=== PATIENT | female | born 1995 | race Caucasian/White ===

== ENCOUNTER 2019-05-04 22:43 | Inpatient (IN) ==
[2019-05-04] MEDS ORDERED: OXYTOCIN 30 UNITS/500 ML BAG IV PRN (23:29)
[2019-05-04] MEDS: LACTATED RINGER'S 1,000 ML IV PRN (23:35)
[2019-05-04] MEDS ORDERED: fentaNYL citrate 100 MCG/2 ML VIAL ONE (23:58)
[2019-05-04] MEDS ORDERED: BUPIVACAINE 0.25% 30 ML VIAL ONE (23:58)
[2019-05-04] MEDS ORDERED: ePHEDrine sulfate 50 MG/ML AMP ONE (23:58)
[2019-05-04 23:59] LABS: Hematocrit (blood only) 33.1 % (37-47); Mean Corpuscular Volume 76.1 fL (80-100); Mean Platelet Volume 11.2 fL (7.4-10.4); Platelet Count 174 K/uL (130-400); RDW Coefficient of Variation 15.5 % (11.5-14.5); RDW Standard Deviation 43.4 fL (36.4-46.3); Red Blood Count 4.35 M/uL (4.2-5.4); White Blood Count 7.43 K/uL (4.8-10.8)
[2019-05-04] MEDS ORDERED: fentaNYL 2MCG/ML ROPIV 1.25MG/ML 100 ML BAG EPI ONE (23:59)
[2019-05-05 00:04] LABS: Mean Corpuscular Hgb Conc 33.2 g/dL (32-36)
--- NOTE | 2019-05-05 00:34 | History & Physical Report ---
Date of Service May 05, 2019 Assessment & Plan (1) Normal labor: IUP at term in active labor. Requesting epidural analgesia anticipate vaginal Present on Admission?: Yes History of Present Illness Primary Care Provider: NO PCP Patient is a 23yo white female EDC05/08/19 who presents with regular contractions since 2029 tonight. no bloody show or SROM. She is a late transfer from [place] where she received care. has been complicated by diet controlled GDM. GBS (-) Allergies Allergy/AdvReac Type Severity Reaction Status Date / Time No Known Allergies Allergy Verified 05/04/19 22:59 Home Medications Home Medications Medication Instructions Recorded Confirmed Type 1 tab PO DAILY 04/19/19 05/04/19 History vitamin,calcium,tekdhxqh-bmmd-bfpie acid tablet Patient History Medical History Gestational diabetes diet controlled with current Spontaneous vaginal delivery [facility] 09/13/2017 History of anxiety no meds per pt Social History Preferred Language: Welsh Communication Ability: Effective Executive Admin Required: No Beliefs That Will Affect Care: None marital status: Current Living Situation: Spouse Current Living Situation Comment: [employer] Other Information That Helps Us Care for You: No Feels Safe at Home: Yes Safety Concerns: Feels Safe At This Time Smoking Status: Never smoker Hx Alcohol Use: No Hx Substance Use: No Review of Systems All systems reviewed & are unremarkable except as noted in HPI & below Physical Exam Constitutional: WD/WN, vitals as above Respiratory: normal respiratory effort, lungs clear to auscultation Cardiovascular: RRR, no murmur, no edema Extremities: no calf tenderness Gastrointestinal (Abdomen): normal bowel sounds, soft, nontender, no hepatosplenomegaly Psychiatric: A+Ox3, euthymic affect Genitourinary: normal external appearance OB Exam Abdomen: + vertex and + regular contractions (every 2-3 minutes) Manual OB Exam: + cervical dilation 4 cm, + cervical effacement 80% and + station -2 OB Exam Monitor Tracing: + external FHT monitor used, + external uterine monitor used, + category I and + normal FHT variability Results & Data Vital Signs (Past 12 Hours) Vital Signs Temp Pulse Resp BP 05/04/19 23:06 98.2 F 62 18 122/75 08/17/19 23:02 98.2 F 62 18 122/75 Code Status & VTE Plan VTE Prophylaxis Plan VTE Prophylaxis will be ordered: No
[2019-05-05] MEDS: LACTATED RINGER'S 1,000 ML IV PRN (00:57)
--- NOTE | 2019-05-05 01:04 | Anesthesiology Consultation ---
Date of Service May 05, 2019 Assessment & Plan Chart Review Chart Review: Acceptable Risk for Labor Epidural Consults Requested none History Height/Weight Height: 5 ft 3 in Weight: 67.132 kg Allergies Allergy/AdvReac Type Severity Reaction Status Date / Time No Known Allergies Allergy Verified 05/04/19 22:59 Medications Home Medications Medication Instructions Recorded Confirmed Last Taken 1 tab PO DAILY 04/19/19 05/04/19 05/04/19 09:00 vitamin,calcium,lixutzav-lzjt-yvobb acid tablet Active Medications Generic Name Dose Route Start Last Admin Trade Name Freq PRN Reason Stop Dose Admin Lactated Ringer's 1,000 mls @ 125 mls/hr 05/04/19 23:29 05/05/19 00:59 Lr IV 05/06/19 23:28 125 mls/hr .Q8H PRN Infusion L&D Protocol Protocol Past Medical History Medical History Gestational diabetes diet controlled with current Spontaneous vaginal delivery [facility] 09/13/2017 History of anxiety no meds per pt Past Family History Family History Father Hypertension Aunt Ovarian cancer Social History Smoking Status: Never smoker Hx Alcohol Use: No Hx Substance Use: No Physical Exam Vital Signs Last Vital Signs Temp 36.8 C 05/04/19 23:06 Pulse 64 05/05/19 01:01 Resp 18 05/04/19 23:06 BP 122/71 05/05/19 01:01 Pulse Ox 100 05/05/19 01:00 Testing Laboratory Results 05/04/19 23:39
[2019-05-05] MEDS ORDERED: NALOXONE HCL 1 MG in SODIUM CHLORIDE 0.9% 1000ML 1,000 ML IV PRN (01:07)
[2019-05-05] MEDS ORDERED: DiphenhydrAMINE HCL 50 MG/ML VIAL IV PRN (01:07)
[2019-05-05] MEDS ORDERED: ePHEDrine sulfate 50 MG/ML AMP IV PRN (01:07)
[2019-05-05] MEDS ORDERED: NALOXONE HCL 0.4 MG/1 ML VIAL/CARP IV PRN (01:07)
[2019-05-05] MEDS ORDERED: fentaNYL 2MCG/ML ROPIV 1.25MG/ML 100 ML BAG EPI PRN (01:07)
[2019-05-05] MEDS ORDERED: NALBUPHINE HCL INJ 10 MG/ML AMP IV PRN (01:07)
[2019-05-05] MEDS ORDERED: CALCIUM CARBONATE 500 MG CHEWABLE TAB PO PRN (03:49)
[2019-05-05] MEDS ORDERED: CALCIUM CARBONATE 500 MG CHEWABLE TAB ONE (04:12)
[2019-05-05] MEDS ORDERED: HYDROCORTISONE ACETATE 25 MG SUPP PR PRN (05:04)
[2019-05-05] MEDS ORDERED: ACETAMINOPHEN 325 MG TAB PO PRN (05:04)
[2019-05-05] MEDS ORDERED: BISACODYL 10 MG SUPP PR PRN (05:04)
[2019-05-05] MEDS ORDERED: BENZOCAINE 20% AER SPR 82.5 GM CAN EXT PRN (05:04)
[2019-05-05] MEDS ORDERED: OXYTOCIN 30 UNITS/500 ML BAG IV PRN (05:04)
[2019-05-05] MEDS ORDERED: SUPERCREAM 0.870% 15 GM JAR EXT PRN (05:04)
[2019-05-05] MEDS ORDERED: DIPHTHERIA/TETANUS/PERTUSSIS 0.5 ML SYR/VIAL IM ONE (05:04)
--- NOTE | 2019-05-05 06:42 | Delivery Summary ---
DATE OF OPERATION: 05/05/2019 The patient is a 23-year-old 2, para 1-0-0-1 white female, EDC of 05/08/2019, who presented to labor and delivery in spontaneous labor. She received effective epidural analgesia. Membranes were ruptured for clear fluid at 7 cm dilated. She rapidly went to full dilation, pushed effectively through 2 contractions for delivery of a viable female . Mouth and nasopharynx were suctioned on the perineum. The rest of the delivered easily and was placed on the mother's abdomen for further attention and drying. There was vigorous crying and the infant was moving all 4 limbs. After 30 seconds, the cord was clamped and cut. Cord blood was obtained. The placenta was then expressed intact with a 3-vessel cord. bleeding was controlled with dilute Pitocin. Estimated blood loss was 350 mL. A first-degree perineal laceration was repaired with 3-0 chromic in the usual fashion. Mother and infant are doing well after delivery. I attest to the content of the Intraoperative Record and any orders documented therein. Any exception s are noted below.
--- NOTE | 2019-05-05 07:22 | Anesthesia Procedure Note ---
Date of Service May 05, 2019 Anesthesia Post Epidural Note Vital Signs Vital Signs: Temp Pulse Resp BP Pulse Ox 36.8 C 53 L 18 120/63 99 05/05/19 03:30 05/05/19 06:57 05/05/19 04:00 05/05/19 06:57 05/05/19 04:55 Notes Mental Status: alert / awake / arousable Nausea / Vomiting: adequately controlled Pain: adequately controlled Airway Patency, RR, SpO2: stable & adequate BP & HR: stable & adequate Hydration State: stable & adequate Neuraxial Anesthesia: was administered and sensory block is resolving Anesthetic Complications: no major complications apparent and Pt Satisfied with anesthetic care Epidural: Removed without complications and With tip intact
[2019-05-05] MEDS: DOCUSATE SODIUM 100 MG CAP PO SCH ×2 (09:05→20:37)
[2019-05-05] MEDS: PRENATAL VITAMIN 1 TAB PO SCH (09:05)
[2019-05-05] MEDS: IBUPROFEN 600 MG TAB PO PRN ×2 (14:30→19:08)
[2019-05-06] MEDS: IBUPROFEN 600 MG TAB PO PRN (02:06)
--- NOTE | 2019-05-06 06:11 | Obstetrical Progress Note ---
Date of Service <Altagracia Hope MD - Last Filed: 05/06/19 06:50> May 06, 2019 Assessment & Plan <Altagracia Hope MD - Last Filed: 05/06/19 06:50> (1) Status post vaginal delivery: Penelope is a 23 yo on PPD 1 after at term - GBS -, Rh+, Rubella immune -Vitals reviewed and WNL -patient is doing clinically well Discharge instructions reviewed; patient ready for discharge - After discharge will have [address] Noel. Subjective <Altagracia Hope MD - Last Filed: 05/06/19 06:50> Ambulation: ambulating normally Voiding: no voiding problems Passing Gas:: Yes Diet Tolerance:: regular diet Lochia:: Moderate Feeding Type:: breast feeding Current Pain Level(1-10): 3 examined at bedside Constitutional: no fever, no chills and no sweats Eyes: no worsening vision Respiratory: no cough and no dyspnea Cardiovascular: no chest pain, no palpitations, no edema and no calf pain Breast: no breast pain Gastrointestinal: no nausea and no vomiting Genitourinary (female): no dysuria and no urinary frequency Neurologic: no headache(s) Physical Exam <Altagracia Hope MD - Last Filed: 05/06/19 06:50> Constitutional WD/WN, vitals as above no acute distress Respiratory normal respiratory effort, lungs clear to auscultation does not use accessory muscles Auscultation: no crackles, no rales, no rhonchi, no wheezes and no pleural rub Cardiovascular Rate/Rhythm: regular rate and regular rhythm Heart Sounds: normal S1 and normal S2; no gallop, no murmur and no cardiac rub Extremities: no calf tenderness and no pedal edema Gastrointestinal (Abdomen) Inspection/Auscultation: normal bowel sounds; abdomen not distended Percussion/Palpation: abdomen soft Genitourinary Uterus: fundus firm, palpable 1 cm below the uterus Results & Data <Altagracia Hope MD - Last Filed: 05/06/19 06:50> Vital Signs (Past 12 Hours) Vital Signs Temp Pulse Resp BP 05/06/19 04:15 36.6 C 49 L 18 124/77 05/06/19 00:30 36.8 C 62 18 119/68 05/05/19 21:00 36.6 C 57 L 16 112/67 <Charisse Tavares MD, FACOG - Last Filed: 05/06/19 08:04> Co-Signing Physician Notes Resident Physician Supervision Note: I interviewed and examined the patient. Discussed with Dr. Hope and agree with findings and plan as documented in the note. Any exceptions or clarifications are listed here: Hgb is 9.1 so she will take FeSO4 5 days a week for the next month. Documented By: Charisse Tavares MD, FACOG
[2019-05-06 07:08] LABS: Hemoglobin 9.1 g/dL (12.0-16.0); Mean Corpuscular Hgb Conc 32.5 g/dL (32-36); Mean Corpuscular Volume 77.6 fL (80-100); Platelet Count 132 K/uL (130-400); RDW Standard Deviation 45.3 fL (36.4-46.3); Red Blood Count 3.61 M/uL (4.2-5.4); White Blood Count 8.27 K/uL (4.8-10.8)
[2019-05-06] MEDS: DOCUSATE SODIUM 100 MG CAP PO SCH (07:46)
[2019-05-06] MEDS: PRENATAL VITAMIN 1 TAB PO SCH (07:46)
[2019-05-06] MEDS ORDERED: BISACODYL 5 MG TABEC PO SCH (20:00)
== END 2019-05-06 14:38 | disposition home or self-care (01) | DRG 807 ==
LOC: OPB 22:43 → 4S1 22:47 → 4S2 05-05 09:30

== ENCOUNTER 2020-12-06 20:40 | Inpatient (IN) ==
[2020-12-06] MEDS ORDERED: OXYTOCIN 30 UNITS/500 ML BAG IV PRN (20:52)
[2020-12-06] MEDS: LACTATED RINGER'S 1,000 ML IV PRN ×2 (20:54→22:45)
--- NOTE | 2020-12-06 21:02 | Labor Progress Brief Note ---
Date of Service December 06, 2020 Subjective Arrives from home with c/o contractions Q2-3min, no LOF, no VB, good FM. A1GDM. Due date tomorrow, was planning IOL (had considered C/Sec, but now feels ok with vaginal delivery). Assessment & Plan (1) Normal labor and delivery: Going to admit with labor, epidural on request. Patient previously had breech fetus, now vertex; preveiously requested elective primary CS with BTL, now comfortable with vaginal delivery (had actually requested changing plan to IOL a few days ago). Physical Exam Physical Exam: 8/100/+1 Vertex palpable Membranes intact / bulging. [place] Q2min FHT Cat 1 Results & Data ([facility]) Vital Signs (Past 12 Hours) Vital Signs Pulse BP 12/06/20 20:47 88 114/66 Coding Level of Care Code None Diagnoses Normal labor and delivery O80
[2020-12-06 21:13] LABS: Hematocrit (blood only) 36.3 % (37-47); Hemoglobin 12.5 g/dL (12.0-16.0); Mean Corpuscular Hemoglobin 29.4 pg (25-34); Mean Corpuscular Hgb Conc 34.4 g/dL (32-36); Mean Corpuscular Volume 85.4 fL (80-100); Mean Platelet Volume 11.6 fL (7.4-10.4); Platelet Count 184 K/uL (130-400); RDW Coefficient of Variation 14.8 % (11.5-14.5); RDW Standard Deviation 45.5 fL (36.4-46.3); Red Blood Count 4.25 M/uL (4.2-5.4); White Blood Count 8.59 K/uL (4.8-10.8)
--- NOTE | 2020-12-06 21:46 | Anesthesiology Consultation ---
Date of Service December 06, 2020 Assessment & Plan (1) Encounter for pre-operative examination: Chart Review Chart Review: Acceptable Risk for Surgery and Patient NOT seen in Pre Admission Testing Consults Requested none History Height/Weight Height: 5 ft 3 in Weight: 67.585 kg Allergies Allergy/AdvReac Type Severity Reaction Status Date / Time No Known Allergies Allergy Verified 12/06/20 20:48 Medications Home Medications Medication Instructions Recorded Confirmed Last Taken prenat.vits,thea,lus-ciss-hzneq 1 tab PO QAM 04/23/20 12/06/20 12/06/20 08:00 acetone (urine) test #50 ea 06/04/20 12/01/20 Unknown Active Medications Generic Name Dose Route Start Last Admin Trade Name Freq PRN Reason Stop Dose Admin Lactated Ringer's 1,000 mls @ 125 mls/hr 12/06/20 20:52 12/06/20 20:54 Lr IV 12/08/20 20:51 999 mls/hr .Q8H PRN Administration L&D Protocol Protocol Past Medical History Medical History Gestational diabetes diet controlled with current History of anxiety no meds per pt Hx of varicella Post depression 1st and 2nd child Spontaneous vaginal delivery [facility] 09/13/2017 Past Family History Family History Father Hypertension Aunt Ovarian cancer maternal Grandmother (Maternal) Myocardial infarction Past Surgical History Surgical History No history of previous surgery Social History Smoking Status: Never smoker Hx Alcohol Use: No Hx Substance Use: No substance use type: does not use Physical Exam Vital Signs Last Vital Signs Temp 36.6 C 12/06/20 20:47 Pulse 76 12/06/20 21:42 Resp 18 12/06/20 20:49 BP 114/66 12/06/20 20:47 Pulse Ox 100 12/06/20 21:42 Testing Laboratory Results 12/06/20 21:05 12/06/20 21:07 POC Glucose 81
[2020-12-06] MEDS ORDERED: BUPIVACAINE 0.25% 30 ML VIAL ONE (21:59)
[2020-12-06] MEDS ORDERED: ePHEDrine sulfate 50 MG/ML AMP ONE (21:59)
[2020-12-06] MEDS ORDERED: fentaNYL 2MCG/ML ROPIVACAINE 1.25MG/ML 100 ML BAG EPI ONE (21:59)
[2020-12-06] MEDS ORDERED: fentaNYL citrate 100 MCG/2 ML VIAL ONE (21:59)
[2020-12-06] MEDS ORDERED: SODIUM CHLORIDE 0.9% INJ 10 ML VIAL ONE (21:59)
[2020-12-06] MEDS ORDERED: NALOXONE HCL 1 MG in SODIUM CHLORIDE 0.9% 1000ML 1,000 ML IV PRN (22:20)
[2020-12-06] MEDS ORDERED: ePHEDrine sulfate 50 MG/ML AMP IV PRN (22:20)
[2020-12-06] MEDS ORDERED: NALOXONE HCL 0.4 MG/1 ML VIAL/CARP IV PRN (22:20)
[2020-12-06] MEDS ORDERED: diphenhydrAMINE 50 MG/ML VIAL IV PRN (22:20)
[2020-12-06] MEDS ORDERED: fentaNYL 2MCG/ML ROPIVACAINE 1.25MG/ML 100 ML BAG EPI PRN (22:20)
[2020-12-06] MEDS ORDERED: ONDANSETRON INJ 2 MG/ML 2 ML VIAL IV PRN (22:20)
--- NOTE | 2020-12-07 00:03 | Delivery Summary ---
Vaginal Delivery Summary Date of Service December 07, 2020 Vaginal Delivery Summary DIAGNOSES: 1. Perez intrauterine at 39w6d gestation. 2. Spontaneous onset of labor. 3. Group B Streptococcus Neg. PROCEDURE: Spontaneous vaginal delivery and repair of 1st degree laceration. SURGEON: Nicol Keller MD. DATA COLLECTION TECHNICIAN: None. ESTIMATED BLOOD LOSS: 350 mL. COMPLICATIONS: None. PLACENTA: Spontaneous and intact with a 3-vessel cord. DISPOSITION: Stable to labor and delivery. DESCRIPTION: The patient pushed well and brought the head to in OA position. The infant's head was allowed to deliver with contraction force and no further active pushing, with the perineum protected during this time. The shoulders delivered easily with a maternal pushing effort. There was no nuchal cord but there was a 3x looped body cord around hips and legs. The right shoulder was anterior. The shoulders and body delivered without any difficulty, and the infant was placed on the maternal abdomen. It was vigorous and moving all extremities, and making respiratory efforts. The cord was doubly clamped by the MD and then cut by the FOB. The placenta delivered spontaneously and was noted to be intact and with a 3VC. The cervix, vagina and perineum were examined and were found to have a first degree laceration at the fourchette which was hemostatic but was reapproximated with vicryl suture for optimal cosmesis. The fundus was firm and lochia minimal immediately after delivery. [facility] Vaginal Delivery Charge Vaginal Delivery Codes: 87835 global code for the antepartum, delivery, and post-
--- NOTE | 2020-12-07 00:06 | Anesthesia Procedure Note ---
Date of Service December 07, 2020 Anesthesia Post Epidural Note Vital Signs Vital Signs: Temp Pulse Resp BP Pulse Ox 36.6 C 70 18 116/60 98 12/06/20 20:47 12/06/20 23:57 12/06/20 23:07 12/06/20 23:54 12/06/20 23:57 Pain Intensity Bilateral Lower Abdomen: Pain Intensity: 3 Notes Mental Status: alert / awake / arousable and participated in evaluation Nausea / Vomiting: adequately controlled Pain: adequately controlled Airway Patency, RR, SpO2: stable & adequate BP & HR: stable & adequate Hydration State: stable & adequate Neuraxial Anesthesia: was administered and sensory block is resolving Anesthetic Complications: no major complications apparent and Pt Satisfied with anesthetic care Epidural: Removed without complications and With tip intact Notes: Epidural site clean, dry and intact. No signs of edema, erythema or bruising at insertion site. Pt instructed to request anesthesia if she has residual lower extremity numbness or if she develops lower extremity pain or weakness, back pain or headache.
[2020-12-07] MEDS ORDERED: HYDROCORTISONE ACETATE 25 MG SUPP PR PRN (00:24)
[2020-12-07] MEDS ORDERED: DIPHTHERIA/TETANUS/PERTUSSIS 0.5 ML SYR/VIAL IM ONE (00:24)
[2020-12-07] MEDS ORDERED: oxyCODONE/ACETAMINOPHEN 5mg/325mg TAB PO PRN (00:24)
[2020-12-07] MEDS ORDERED: BENZOCAINE 20% AER SPR 82.5 GM CAN EXT PRN (00:24)
[2020-12-07] MEDS ORDERED: SUPERCREAM 0.870% 15 GM JAR EXT PRN (00:24)
[2020-12-07] MEDS ORDERED: ACETAMINOPHEN 325 MG TAB PO PRN (00:24)
[2020-12-07] MEDS: IBUPROFEN 600 MG TAB PO PRN ×4 (03:59→20:57)
--- NOTE | 2020-12-07 05:09 | Obstetrical Progress Note ---
Date of Service <José Miguel Fuentes MD - Last Filed: 12/07/20 07:30> December 07, 2020 Assessment & Plan <José Miguel Fuentes MD - Last Filed: 12/07/20 07:30> (1) : - PNL: Rh pos, RI, GBS neg, COVID neg - Feels well today. Eating well, voiding well, ambulating well - Pain well controlled with ibuprofen 600mg Q4H PRN - Routine care -- OOB, ambulation, diet progression as tolerated - After discharge will have 6 week follow-up with Dr. Keller (2) Normal labor and delivery: Subjective <José Miguel Fuentes MD - Last Filed: 12/07/20 07:30> Penelope is a 25 y/o female who is PPD #1 following at 39.6 weeks. She reports feeling well overall this morning. Some abdominal cramping and 2/10 pain well managed on analgesics. Voiding well. Tolerating meals overnight without difficulty. Patient has been able to ambulate some. Not passing gas and no bowel movement yet. Has persistent lochia with some improvement this morning. Currently . Review of Systems Denies fever or chills. Denies shortness of breath or cough. Denies chest pain. Denies breast pain. Denies dysuria. Denies leg pain or leg swelling. Denies headache or changes in vision. Physical Exam <José Miguel Fuentes MD - Last Filed: 12/07/20 07:30> General: Alert, oriented. No acute distress. Cardiac: Regular rate and rhythm. No murmurs. Respiratory: Clear to auscultation bilaterally a/p, no wheezes/rales/rhonchi. No increased work of breathing. Symmetrical chest rise. No respiratory distress. Abdomen: Soft, nontender, nondistended. Bowel sounds present. Uterus: Uterine fundus firm, palpable ~1 cm below umbilicus. Lower Extremities: No lower extremity edema or swelling. No deep calf pain. Blank's negative bilaterally. Results & Data ([facility]) <José Miguel Fuentes MD - Last Filed: 12/07/20 07:30> Vital Signs (Past 12 Hours) Vital Signs Temp Pulse Pulse Resp BP BP Pulse Ox 03/22/21 04:20 36.6 C 76 18 99/62 L 97 12/07/20 03:35 81 18 103/57 L 12/07/20 01:54 36.6 C 76 18 111/55 L 12/07/20 01:39 82 111/61 12/07/20 01:24 69 18 111/56 L 12/07/20 01:09 90 114/56 L 12/07/20 00:54 75 18 104/53 L 12/07/20 00:39 80 18 116/56 L 12/07/20 00:24 68 18 108/54 L 12/07/20 00:10 72 18 106/54 L 12/06/20 23:57 70 98 12/06/20 23:54 36.7 C 82 18 116/60 12/06/20 23:52 76 98 12/06/20 23:47 90 97 12/06/20 23:42 114 H 89 L 12/06/20 23:38 36.7 C 12/06/20 23:37 116 H 96/52 L 95 12/06/20 23:35 77 94 12/06/20 23:32 88 97 12/06/20 23:28 85 94 12/06/20 23:27 87 97 12/06/20 23:23 74 99/55 L 12/06/20 23:22 75 97 12/06/20 23:17 68 97 12/06/20 23:12 66 96 12/06/20 23:11 67 94 12/06/20 23:07 65 18 99/55 L 97 12/06/20 23:05 71 94 12/06/20 23:02 61 97 12/06/20 22:57 71 97 12/06/20 22:52 77 96/52 L 98 12/06/20 22:47 65 99 12/06/20 22:42 65 98 12/06/20 22:38 64 107/53 L 12/06/20 22:37 67 100 12/06/20 22:32 81 18 108/59 L 100 12/06/20 22:28 62 16 107/55 L 12/06/20 22:27 64 99 12/06/20 22:22 61 105/53 L 100 12/06/20 22:19 68 16 106/55 L 12/06/20 22:17 74 99 12/06/20 22:16 77 104/56 L 12/06/20 22:13 77 18 108/56 L 12/06/20 22:12 78 99 12/06/20 22:10 80 116/56 L 12/06/20 22:07 74 115/56 L 99 12/06/20 22:05 70 18 120/58 L 12/06/20 22:02 78 99 12/06/20 22:01 89 18 117/87 12/06/20 21:57 87 99 12/06/20 21:52 86 99 12/06/20 21:49 85 78 L 12/06/20 21:47 75 100 12/06/20 21:42 76 100 12/06/20 21:37 70 100 12/06/20 21:32 67 100 12/06/20 21:27 71 100 12/06/20 21:22 85 100 12/06/20 21:17 63 100 12/06/20 20:49 18 12/06/20 20:47 36.6 C 88 18 114/66 <Nicol Keller MD - Last Filed: 12/07/20 07:56> Co-Signing Physician Notes Resident Physician Supervision Note: I interviewed and examined the patient. Discussed with Dr. Lawrence and agree with findings and plan as documented in the note. Any exceptions or clarifications are listed here: Documented By: Nicol Keller MD, FACOG Resident Activity Tracking <José Miguel Fuentes MD - Last Filed: 12/07/20 07:30> Resident Involvement: Resident Care Provided Care Provided: OB Delivery
[2020-12-07] MEDS: DOCUSATE SODIUM 100 MG CAP PO SCH ×2 (09:03→20:58)
[2020-12-07] MEDS: PRENATAL VITAMIN 1 TAB PO SCH (09:03)
[2020-12-08] MEDS: IBUPROFEN 600 MG TAB PO PRN ×2 (02:45→08:45)
--- NOTE | 2020-12-08 05:20 | Obstetrical Progress Note ---
Date of Service <José Miguel Fuentes MD - Last Filed: 12/08/20 07:01> December 08, 2020 Assessment & Plan <José Miguel Fuentes MD - Last Filed: 12/08/20 07:01> (1) : - PNL: Rh pos, RI, GBS neg, COVID neg - Feels well today. Eating well, voiding well, ambulating well - Pain well controlled with ibuprofen 600mg Q4H PRN - Routine care -- OOB, ambulation, diet progression as tolerated - After discharge will have 6 week follow-up with Dr. Keller (2) Normal labor and delivery: Subjective <José Miguel Fuentes MD - Last Filed: 12/08/20 07:01> Penelope is a 25 y/o female who is PPD #2 following at 39.6 weeks. She reports feeling well overall this morning. Light abdominal cramping and 2/10 pain well managed on analgesics. Voiding well. Tolerating meals overnight without difficulty. Patient has been able to ambulate some. Is passing gas, has not yet had a bowel movement. Has persistent lochia with some improvement this m orning. Currently . Review of Systems Denies fever or chills. Denies shortness of breath or cough. Denies chest pain. Denies breast pain. Denies dysuria. Denies leg pain or leg swelling. Denies headache or changes in vision. Physical Exam <José Miguel Fuentes MD - Last Filed: 12/08/20 07:01> General: Alert, oriented. No acute distress. Cardiac: Regular rate and rhythm. No murmurs. Respiratory: Clear to auscultation bilaterally a/p, no wheezes/rales/rhonchi. No increased work of breathing. Symmetrical chest rise. No respiratory distress. Abdomen: Soft, nontender, nondistended. Bowel sounds present. Uterus: Uterine fundus firm, palpable ~2 cm below umbilicus. Lower Extremities: No lower extremity edema or swelling. No deep calf pain. Blank's negative bilaterally. Results & Data ([facility]) <José Miguel Fuentes MD - Last Filed: 12/08/20 07:01> Vital Signs (Past 12 Hours) Vital Signs Temp Pulse Resp BP 12/08/20 00:00 36.8 C 86 110/71 12/07/20 21:00 36.4 C L 59 L 20 104/64 <Altagracia Xavier DO - Last Filed: 12/08/20 08:14> Co-Signing Physician Notes Resident Physician Supervision Note: I was present with Dr. Lawrence during the history and exam. I discussed the case with the resident and agree with the findings and plan as documented in the note. Any exceptions or clarifications are listed here: PPD#2 doing well, no concerns. Reviewed discharge instructions, followup 6wPP. Documented By: Altagracia Xavier DO Resident Activity Tracking <José Miguel Fuentes MD - Last Filed: 12/08/20 07:01> Resident Involvement: Resident Care Provided Care Provided: OB Delivery
[2020-12-08 06:29] LABS: Hematocrit (blood only) 33.9 % (37-47); Hemoglobin 11.5 g/dL (12.0-16.0); Mean Corpuscular Hemoglobin 29.7 pg (25-34); Mean Corpuscular Hgb Conc 33.9 g/dL (32-36); Mean Corpuscular Volume 87.6 fL (80-100); Mean Platelet Volume 11.8 fL (7.4-10.4); Platelet Count 147 K/uL (130-400); RDW Coefficient of Variation 15.2 % (11.5-14.5); RDW Standard Deviation 47.9 fL (36.4-46.3); Red Blood Count 3.87 M/uL (4.2-5.4)
[2020-12-08] MEDS: DOCUSATE SODIUM 100 MG CAP PO SCH (08:45)
[2020-12-08] MEDS: PRENATAL VITAMIN 1 TAB PO SCH (08:45)
--- NOTE | 2020-12-14 12:14 | Coding Query ---
CODING QUERY To promote full compliance with coding requirements relating to patient care, provider participation is requested in all cases of audit consultant uncertainty. Please assist us with the question(s) below: Coding Question(s): 1. The Vaginal Delivery Summary shows a Date of Service of 12/07/20, however, the EMR shows the date of delivery to be 12/06/21. Please clarify below, the date of delivery. ( x ) 12/06/20 ( ) 12/07/20 ( ) Other: Please Specify 2. The Anesthesia Record documents under Medical History, "Gestational diabetes diet controlled with current ". It is not clear if this diagnosis was for the current . Please specify below. (x ) Gestational Diabetes diet controlled with current ( ) History of Gestational Diabetes only ( ) Other: Please Specify Physician's Response(s): Thank you Audrey Vazquez Principal Diagnosis: "that condition established after study, to be chiefly responsible for occasioning the admission of the patient to the hospital for care." Co-Existing Principal Diagnosis: "when two or more diagnoses equally meet the criteria for principal diagnosis as determined by the circumstances of admission, diagnostic work up, and/or therapy provided, and the Alphabetic Index, Tabular List, or another coding guideline does not provide sequencing direction, any one of the diagnoses may be sequenced first." "When the physician has documented what appears to be a current diagnosis in the body of the record, but has not included the diagnosis in the final diagnostic statement, the physician should be asked whether the diagnosis should be added." ([facility] 2 QTR90. p3-4) TRESSAD
== END 2020-12-08 11:00 | disposition home or self-care (01) | DRG 807 ==
LOC: OPB 20:40 → 4S1 20:41 → 4S2 12-07 03:46